=== PATIENT | male | born 1960 | race Caucasian/White ===

== ENCOUNTER → 2017-05-11 | Outpatient (CLI) | payer MEDICARE, MEDICAID ==
[~2017-05-11] MED LIST: ASPIRIN LO-DOSE81 MG PO; CLEOCIN150 MG PO; DUONEB INH; FLEXERIL10 MG PO; FLONASE 50 MCG/16 GM NOSE; FOSINOPRIL SODI20 MG PO; GLUCOPHAGE1000 MG PO; INVOKANA300 MG PO; LANTUS (IN100 UNIT/M SUB-Q; LASIX40 MG PO; LIPITOR20 M1 PO; NOVOLOG FL100 UNIT/1 SUB-Q; OMEPRAZOLE40 MG PO; PROVENTIL OR V6.7 GM INH; ROXICODONE 5MG (5 MG PO; SINGULAIR10 MG PO; ULTRAM50 MG PO; ZYRTEC10 MG PO
== END | disposition disaster alternative care site (69) ==
LOC: GRAD 05-04 10:30
DX: M54.2 Cervicalgia (principal); M47.892 Other spondylosis, cervical region; Z98.1 Arthrodesis status

== ENCOUNTER 2017-05-31 05:41 | Day surgery (SDC) | payer MEDICARE, MEDICAID ==
[~2017-05-31] VITALS: Ht 167.6 cm; Wt 123.3 kg
--- NOTE | ~2017-05-31 | CON ---
PATIENT'S NAME: TOÑITO RUIZ [facility] AGE: 57 Y [address] ROOM: [place] [address] LOCATION: G3N ADMIT DATE: 05/31/2017 Consultation DISCHARGE DATE: FAMILY PHYSICIAN: Richie Hunt DO ATTENDING PHYSICIAN: HEMA GARCIA DATE OF CONSULTATION: 06/01/2017 REFERRING PHYSICIAN: Hema Garcia MD REASON FOR CONSULT: Unna boots. HISTORY OF PRESENT ILLNESS: This is a 57-year-old male patient who was admitted [facility] for a scheduled C5-C6 diskectomy and fusion by Dr. Garcia. He has history of type 2 diabetes mellitus, CAD, and osteoporosis. He currently resides in [place], [place]. His primary care provider has been wrapping his lower extremities with Unna boots for about 6 weeks now. He notes his ulcers are healing. He has known venous insufficiency and reports "elephantiasis." He normally wraps his legs with Vishal wraps at home. He wears custom inserts and shoes from [facility]. He has tried a Solaris-type garment at home, but notes he was unable to fully get on by himself. He prefers Vishal wraps. He uses vitamin E cream to his lower extremities. He denies further skin issues. He is a nonsmoker. He has a history of a lower leg DVT about 6 years ago. He reports a good oral intake. He denies constitutional symptoms. PAST MEDICAL HISTORY: Type 2 diabetes mellitus, peripheral neuropathy, hypertension, lower leg edema, venous insufficiency, obstructive sleep apnea, osteoporosis, osteoarthritis, nocturia, DVT, and GERD. PAST SURGICIAL HISTORY: See chart. FAMILY HISTORY: None listed. SOCIAL HISTORY: The patient lives by himself in [place], [place]. He has a remote history of smoking. He denies alcohol use. ALLERGIES: AUGMENTIN. CURRENT MEDICATIONS: Please refer to the medication administration record. PHYSICAL EXAMINATION: PATIENT'S NAME: TOÑITO RUIZ [facility] AGE: 57 Y [address] ROOM: [place] [address] LOCATION: N ADMIT DATE: 05/31/2017 Consultation DISCHARGE DATE: FAMILY PHYSICIAN: Blomstedt, Richie DO ATTENDING PHYSICIAN: HEMA GARCIA VITAL SIGNS: Temperature 98.1, pulse 72, respirations 12, blood pressure 108/57, pulse oximetry 92%, height 5 feet 6 inches, and weight 123.3 kg. GENERAL: The patient is alert and oriented x3. Well developed, in no acute distress. HEENT: Head: Normocephalic and atraumatic. MUSCULOSKELETAL: [place] C-collar on. EXTREMITIES: Unable to assess due to Unna boot application. SKIN: Bilateral Unna boots intact. There is spandage noted over Unna boots. No other skin issues. LABORATORY DATA: Hemoglobin A1c is 7.7%. ASSESSMENT AND PLAN: Again, this is a 57-year-old male patient who was admitted to [facility] for a scheduled C5-C6 diskectomy and fusion. Wound Care Consult to assess Unna boots. Lower leg edema with history of venous insufficiency. The patient has Unna boots on. He would not like me to remove or assess. He wants to continue to follow up with his primary care provider. He has an appointment with him next Sunday. He notes his ulcers are almost healed. I did give him new Vishal wraps for home use. We discussed lifelong compression options, elevation, and ankle calf pump muscle exercise. I gave him my card and encouraged him to call me if he ever has questions or needs in the future. He denied further assistance. No other skin issues noted. I wish him good luck as he discharges back home. MYNOR TARIQ APRN FOR MD POLLY FRY/kristi /[id number] d: 06/01/17 1001 t: 06/01/17 1053, CONSULTATION REPORT
--- NOTE | ~2017-05-31 | OR ---
PATIENT'S NAME: TOÑITO RUIZ [facility] AGE: 57 Y [address] ROOM: [place] [address] LOCATION: [facility] ADMIT DATE: 05/31/2017 OR/Procedure Report DISCHARGE DATE: FAMILY PHYSICIAN: Richie Hunt DO ATTENDING PHYSICIAN: HEMA GARCIA SURGEON: Hema Garcia MD FLATBED OWNER OPERATOR: DATE OF PROCEDURE: 05/31/2017 ANESTHESIA: General. COMPLICATIONS: None. ESTIMATED BLOOD LOSS: Minimal. PREOPERATIVE DIAGNOSES: 1. History of previous C5-6 anterior cervical diskectomy and fusion, query pseudarthrosis and loose hardware. 2. C4-5 adjacent level disease, degenerative joint disease with mechanical neck pain. 3. Bilateral C5 foraminal stenosis with radiculopathy. POSTOPERATIVE DIAGNOSES: 1. History of previous C5-6 anterior cervical diskectomy and fusion, query pseudarthrosis and loose hardware. 2. C4-5 adjacent level disease, degenerative joint disease with mechanical neck pain. 3. Bilateral C5 foraminal stenosis with radiculopathy. PROCEDURES PERFORMED: 1. Exposure of C5-6 anterior instrumented fusion. 2. C4-5 anterior cervical diskectomy and fusion. 3. Bilateral C5 foraminotomy and decompression. 4. Insertion of cortical cancellous allograft spacer into C4-5 disk (system used is Medtronic Cornerstone System). 5. Insertion of an anterior cervical titanium plate across C4-5 disk (system used is Medtronic Farwell Elite system). 6. Intraoperative fluoroscopy and interpretation. INTRAOPERATIVE FINDINGS: 1. Osteoporosis. 2. Solid C5-6 fusion, no evidence of lucency. 3. Severe C4-5 stenosis, severe right C5 foraminal stenosis. CLINICAL HISTORY: The patient is a 57-year-old male patient who was diagnosed [facility] AGE: 57 Y [address] ROOM: [place] [address] LOCATION: [facility] ADMIT DATE: 05/31/2017 OR/Procedure Report DISCHARGE DATE: FAMILY PHYSICIAN: Richie Hunt DO ATTENDING PHYSICIAN: HEMA GARCIA clinically and on imaging to have the above-mentioned diagnoses. The patient was symptomatic. He was seen by Pain Service and eventually referred to me. I recommended the above-mentioned surgery to the patient to try to treat his symptoms and improve his daily functioning and activity. The patient was interested in proceeding with surgery. So, he was brought in for the operation. DESCRIPTION OF PROCEDURE: The patient was seen in the preoperative care unit, and the correct side was marked. Then, he was transferred to the main operating theater, was given general anesthetic, and underwent endotracheal intubation without complications. Preoperative antibiotics and steroids were given. Calf compressors were not used in this case given the existing wrapping of the lower extremities for ulcers and edema. The patient was positioned supine on the table, and all his joints and bony prominences were securely padded. The patient's head was placed on a gel-padded beanbag in mild extension/neutral position. Shoulders were taped away to facilitate intraoperative fluoroscopy. I then marked a vertical incision on the right side of the neck extending from C4-5 down to C6 level. The surgical site was then prepped and draped as per usual. The proposed skin incision was infiltrated with 0.25% Marcaine with epinephrine. Skin was sharply opened down to the subcutaneous tissue. Then, using blunt and sharp dissection, I dissected through the middle cervical fascia which had significant amount of scar tissue given the previous surgery. That part of the operation was substantially difficult and required more time and caution to perform. I then managed to get down to the anterior surface of the spine, and I was able to identify the C5-6 anterior plate. The tissue overlying it were dissected off. Then, I examined that plate, and I did not find any evidence of loosening of hardware. Then, I identified the C4- 5 disk. The tissue including anterior longitudinal ligament and longus colli muscles were elevated off the C4-5 disk. As expected, there were significant arthritic changes including anterior projecting osteophytes. The C5-6 plate was very close to the C4-5 disk space. A self-retaining retractor was placed in. Then, I proceeded to perform the C4-5 diskectomy. I inserted distracting pins into C4 and C5 vertebra, and I applied gentle distraction. As expected, there was severe stenosis, and I was able to get some distraction, although it was limited. Then, I managed to do the C4-5 diskectomy using different sizes curettes, pituitary rongeur, and a high-speed [employer] [place] drill. That part of the operation was also difficult given the severe stenosis and the proximity of the C5-6 plate. Then, I managed to get down to the posterior aspect of the disk, and as expected, there was a very large posterior projecting osteophyte causing central and foraminal stenosis. The epidural plane was entered, and those posterior projecting osteophytes were removed using Kerrison rongeur. PATIENT'S NAME: TOÑITO RUIZ [facility] AGE: 57 Y [address] ROOM: [address] [address] LOCATION: [facility] ADMIT DATE: 05/31/2017 OR/Procedure Report DISCHARGE DATE: FAMILY PHYSICIAN: Richie Hunt DO ATTENDING PHYSICIAN: HEMA GARCIA The thecal sac was decompressed. Then, I proceeded to do bilateral C5 foraminotomy. I used Kerrison rongeur to perform that. I had no complications. I was satisfied with the decompression. Then, I proceeded to perform the fusion. A 5 mm cortical cancellous allograft spacer was inserted into C4-5 disk without any complications. Then, I inserted a 19 mm anterior cervical titanium plate which was anchored to C4 with one 14 x 4 mm self tapping screws and to C5 with two 14 x 4 mm self-tapping screws. I noticed osteoporosis in the bone, and that prevented me from inserting a second screw into C4 vertebra. The plate was finally locked. Final x-ray was performed, and that showed satisfactory decompression and placement of the hardware. I was satisfied with that. Then, I proceeded to hemostasis and closure. The wound was copiously irrigated with bacitracin-containing irrigation. Hemostasis was achieved using bipolar cautery. Then, the wound was closed in layers with 2-0 Vicryl to the galea, 2-0 Vicryl to the platysma and the scar tissue, 2-0 Vicryl to the subcutaneous tissue, and eli for the skin. Sterile dressing was applied. At the end of the operation, the instrument and sponge counts were correct. The patient tolerated the operation without any complications. This case was substantially difficult given the previous C5-6 diskectomy and the significant amount of scar tissue during the dissection. The patient also had severe stenosis at C4-5 level, and that required more time and caution to perform in order to avoid morbidity. AHMAD MD URIEL GARCIA/kristi /[id number] CC: Richie Hunt DO d: 05/31/17 1516 t: 06/01/17 0953, OPERATIVE SUMMARY
--- NOTE | ~2017-05-31 | CON ---
PATIENT'S NAME: TOÑITO RUIZ [facility] AGE: 57 Y [address] ROOM: [place] [address] LOCATION: G3N ADMIT DATE: 05/31/2017 Consultation DISCHARGE DATE: FAMILY PHYSICIAN: Richie Hunt DO ATTENDING PHYSICIAN: HEMA GARCIA DATE OF CONSULTATION: 06/01/2017 REFERRING PHYSICIAN: Hema Garcia MD REASON FOR CONSULT: Unna boots. HISTORY OF PRESENT ILLNESS: This is a 57-year-old male patient who was admitted to [facility] for a scheduled C5-C6 diskectomy and fusion by Dr. Garcia. He has history of type 2 diabetes mellitus, CAD, and osteoporosis. He currently resides in [place], [place]. His primary care provider has been wrapping his lower extremities with Unna boots for about 6 weeks now. He notes his ulcers are healing. He has known venous insufficiency and reports "elephantiasis." He normally wraps his legs with Vishal wraps at home. He wears custom inserts and shoes from [facility]. He has tried a Solaris-type garment at home, but notes he was unable to fully get on by himself. He prefers Vishal wraps. He uses vitamin E cream to his lower extremities. He denies further skin issues. He is a nonsmoker. He has a history of a lower leg DVT about 6 years ago. He reports a good oral intake. He denies constitutional symptoms. PAST MEDICAL HISTORY: Type 2 diabetes mellitus, peripheral neuropathy, hypertension, lower leg edema, venous insufficiency, obstructive sleep apnea, osteoporosis, osteoarthritis, nocturia, DVT, and GERD. PAST SURGICIAL HISTORY: See chart. FAMILY HISTORY: None listed. SOCIAL HISTORY: The patient lives by himself in [place], [place]. He has a remote history of smoking. He denies alcohol use. ALLERGIES: AUGMENTIN. CURRENT MEDICATIONS: Please refer to the medication administration record. PHYSICAL EXAMINATION: PATIENT'S NAME: TOÑITO RUIZ [facility] AGE: 57 Y [address] ROOM: [place] [address] LOCATION: N ADMIT DATE: 05/31/2017 Consultation DISCHARGE DATE: FAMILY PHYSICIAN: Blomstedt, Richie DO ATTENDING PHYSICIAN: HEMA GARCIA VITAL SIGNS: Temperature 98.1, pulse 72, respirations 12, blood pressure 108/57, pulse oximetry 92%, height 5 feet 6 inches, and weight 123.3 kg. GENERAL: The patient is alert and oriented x3. Well developed, in no acute distress. HEENT: Head: Normocephalic and atraumatic. MUSCULOSKELETAL: [place] C-collar on. EXTREMITIES: Unable to assess due to Unna boot application. SKIN: Bilateral Unna boots intact. There is spandage noted over Unna boots. No other skin issues. LABORATORY DATA: Hemoglobin A1c is 7.7%. ASSESSMENT AND PLAN: Again, this is a 57-year-old male patient who was admitted to [facility] for a scheduled C5-C6 diskectomy and fusion. Wound Care Consult to assess Unna boots. Lower leg edema with history of venous insufficiency. The patient has Unna boots on. He would not like me to remove or assess. He wants to continue to follow up with his primary care provider. He has an appointment with him next Sunday. He notes his ulcers are almost healed. I did give him new Vishal wraps for home use. We discussed lifelong compression options, elevation, and ankle calf pump muscle exercise. I gave him my card and encouraged him to call me if he ever has questions or needs in the future. He denied further assistance. No other skin issues noted. I wish him good luck as he discharges back home. MYNOR TARIQ APRN FOR MD POLLY FRY/kristi /[id number] d: 06/01/17 1001 t: 06/04/17 1813, CONSULTATION REPORT
--- NOTE | ~2017-05-31 | DS ---
PATIENT'S NAME: TOÑITO RUIZ [facility] AGE: 57 Y [address] ROOM: [place] [address] LOCATION: [facility] ADMIT DATE: 05/31/2017 Discharge Summary DISCHARGE DATE: 06/01/2017 FAMILY PHYSICIAN: Richie Hunt DO ATTENDING PHYSICIAN: Hema Garcia ADMISSION MAIN DIAGNOSES: 1. ?? C5-6 anterior cervical pseudoarthrosis, loose hardware. 2. C4-5 adjacent level disease, degenerative disk disease, spinal stenosis, and bilateral C5 foraminal stenosis. DISCHARGE MAIN DIAGNOSES: C4-5 adjacent level disease, degenerative disk disease, central and foraminal stenosis. PROCEDURES DURING ADMISSION: 1. Exploration of C5-6 anterior cervical fusion. 2. C4-5 anterior cervical diskectomy and fusion. 3. Bilateral C5 foraminotomy and decompression. COMPLICATIONS DURING ADMISSION: None. DISCHARGE INSTRUCTIONS AND FOLLOWUP APPOINTMENTS: 1. Myself on June 12, 2017, for staple removal. 2. [place] collar when sitting and mobilizing, soft neck collar when in bed. 3. Call my office for any concerns regarding the wound healing or for any new neurologic symptoms. 4. No heavy lifting, no neck twisting. MEDICATIONS ON DISCHARGE: 1. Resume all pre-admission medications. 2. Clindamycin 300 mg p.o. t.i.d. for 5 days. 3. Oxycodone 5-10 mg p.o. every 4 hours p.r.n. 4. Aspirin 81 mg p.o. once daily, start on June 08, 2017. 5. Tramadol 50 to 100 mg p.o. every 6 hours p.r.n. 6. Flexeril 10 mg p.o. every 8 hours p.r.n. HOSPITAL COURSE: The patient was admitted electively to the hospital for the above-mentioned surgery. He underwent an unremarkable operation. Postoperatively, the patient did very well. He was mobilized by physiotherapy and occupational therapy, and he tolerated that very well. His preoperative symptoms resolved after the surgery. He had no new neurologic deficits. His pain was fairly controlled. He tolerated oral intake very well. On the day of discharge, the patient was examined. He continued to do well. He had no new neurologic deficits. The wound was healing very well. He had postoperative cervical spine x-ray and that showed satisfactory decompression PATIENT'S NAME: TOÑITO RUIZ [facility] AGE: 57 Y [address] ROOM: [place] [address] LOCATION: [facility] ADMIT DATE: 05/31/2017 Discharge Summary DISCHARGE DATE: 06/01/2017 FAMILY PHYSICIAN: Richie Hunt DO ATTENDING PHYSICIAN: Hema Garcia and placement of the hardware. I discussed the discharge instructions with the patient. The patient will be discharged home today. The patient was also seen by Wound Care and diabetic education nurses. MD URIEL AMIN/kristi /[id number] CC: Richie Hunt DO d: 06/02/17 0205 t: 06/08/17 0946, DISCHARGE SUMMARY
[~2017-05-31 05:41] MED LIST changes: -CLEOCIN150 MG PO; -FLEXERIL10 MG PO; -ROXICODONE 5MG (5 MG PO; -ULTRAM50 MG PO
--- NOTE | 2017-05-31 18:54 | NUR ---
Significant Event: TO ROOM AT 1150, TRANSFERED TO BED WITH 3 ASSIST AND LIFT. VESTA BRACE TO NECK INTACT, DRSG TO NECK D/I. RIGHT HAND GRASP SLIGHTLY WEAKER THAN LEFT, HAS JULIANNE BOOTS TO BILAT LOWER EXTREM. HAD ROXICODONE 10MG AT 1630, HAD 2 UNITS NOVALOG INSULIN AT 1730HAD PO LASIX. DOES AMBUL TO BR. REPORTS USUALLY SLEEPS IN RECLINER AT HOME... Follow up:
--- NOTE | 2017-06-01 06:59 | NUR ---
Shift Summary: Patient can ambulate with standby assist and walker. To wear rigid neck collar when up and can wear soft collar in bed. Patient slept in his recliner all shift. He has bilateral lower leg UNNA boots placed on Sunday. Patient states he has them changed weekly. Has WOC and Diabetic Ed consult. He is diabetic, but did not do well on his diabetic self test. Has accuchecks AC&HS with a mild SS. Gave 2 Roxicodone/650mg Tylenol at 0145. States his sore throat is the most painful at this time. Patient on Lasix four times a day and voids frequenlty. Tolerating ADA diet well. Plans to go home today.
--- NOTE | 2017-06-01 09:45 | NUR ---
Diabetes consult: Patient reports being discharged to home today. The patient is post C5-C6 fusion and has a history of diabetes. The patient reports that he does not routinely check his blood sugars and has no glucometer. His diabetes is managed by Dr. Ho in [place]. Patient reports his most recent A1C was one month ago and was 8.1%. A1C drawn during this admission is improved at 7.7%. Diabetes education was provided on the importance of monitoring blood sugars, adhering to his insulin regimen and keeping physician appointments to decrease his risk for impaired wound healing and infection to his incision, as well as retirement complications. The patient was given a Contour next glucometer and testing supplies. He was instructed to test blood sugars at least twice daily with an average blood glucose target of 150 provided. The patient was encouraged to take his glucometer to his primary care provider in the next week for a review of blood sugars. Education was provided and guided by the topics listed on the diabetes survival skills checklist. The patient denies any questions or concerns.
--- NOTE | 2017-06-01 09:50 | NUR ---
Introduced self/role to patient, his sister and [id number]. He lives in [place] by himself. He has the support of his sister, who will be available to help as needed. He denied any need for DME. No barriers to going home or at home. He plans to go home today and wonders when that might be. I will check. Added my name to her marker board. Spoke to charge nurse, should be ready go before noon. Updated patient and family.
[2017-06-01] MEDS ORDERED: CLEOCIN150 MG PO (09:54)
[2017-06-01] MEDS ORDERED: ULTRAM50 MG PO (09:55)
[2017-06-01] MEDS ORDERED: FLEXERIL10 MG PO (09:55)
[2017-06-01] MEDS ORDERED: ROXICODONE 5MG (5 MG PO (09:56)
== END 2017-06-01 12:05 | disposition disaster alternative care site (69) ==
LOC: GSDC 05:41 → G3N 05:41 → GSDC 07:00 → G3N 12:00 → GSDC 06-01 12:05
PROC: 0RB30ZZ Excision of Cervical Vertebral Disc, Open Approach (ICD-10-PCS; principal; 2017-05-31)
PROC: 0RG10A0 Fusion of Cervical Vertebral Joint with Interbody Fusion Device, Anterior Approach, Anterior Column, Open Approach (ICD-10-PCS; 2017-05-31)
DX: M48.02 Spinal stenosis, cervical region (principal); M50.121 Cervical disc disorder at C4-C5 level with radiculopathy; M81.0 Age-related osteoporosis without current pathological fracture; J45.909 Unspecified asthma, uncomplicated; E78.00 Pure hypercholesterolemia, unspecified; I10 Essential (primary) hypertension; G47.33 Obstructive sleep apnea (adult) (pediatric); M19.90 Unspecified osteoarthritis, unspecified site; E11.51 Type 2 diabetes mellitus with diabetic peripheral angiopathy without gangrene; Z23 Encounter for immunization; Z98.1 Arthrodesis status; Z79.891 Long term (current) use of opiate analgesic; Z79.82 Long term (current) use of aspirin; Z79.2 Long term (current) use of antibiotics
CPT/HCPCS: C1713; C9399; G0009; G8978; G8979; G8980; G8987; G8988; G8989; J1030; J2001; J2765; J3010; J3360; J7030